=== PATIENT | female | born 2000 | race Caucasian/White ===

== ENCOUNTER 2025-11-08 11:48 | Emergency (ER) | payer MEDICAID ==
[~2025-11-08] VITALS: Ht 165.1 cm; Wt 75.5 kg
--- NOTE | 2025-11-08 12:20 | Physician Documentation ---
History of Present Illness ~ Chief Complaint: Head Injury Stated Complaint: HEAD PAIN Time Seen by MD: 14:14 OK to notify your PCP?: Yes HPI This is a 25-year-old female who presents with one-week of left-sided head pain, that has being, nausea, and vomiting since a fall from the bed of a pickup truck striking the left side of her head and face with loss of consciousness of unkn own time. Patient reports injuries to left shoulder and left hip as well reports full range of motion in both shoulder and hip. Patient reports that the injury was sustained over a week ago when she fell out of the truck. Patient reports she has a chronic history of sinus infections just completed a course of antibiotics approximately 4 days ago but is unsure with the antibiotic was. Patient reports episodes of nausea dizziness and vomiting that she believes is associated with her sinus infections. Chest pain no shortness of breath no headache other than pressure in her sinuses. No other symptoms reported at this time. Medication Reconciliation Allergies: Coded Allergies: No Known Allergies (Unverified , 11/08/25) Review of Systems ROS As stated above in the HPI, otherwise all systems are reviewed and negative. Physical Exam Vital Signs: Temperature: 98.0, Heart Rate: 98, Respiratory Rate: 17, BP: 146/92, Pulse Oximetry: 100, Weight: 75.450 Oxygen Flow Rate: 0 Physical Exam VITALS: Reviewed and as above. GENERAL: Alert, nontoxic appearing, no apparent distress. HEENT: PERRLA, EOMI RESPIRATORY: No increased work of breathing, no respiratory distress, speaking in full clear sentences CHEST: CV: BACK: GI: MUSCULOSKELETAL: Full ROM to bilateral upper extremities, though the pain elicited with ROM left shoulder SKIN: NEURO: PSYCH: Progress Results/Orders Results/Orders Vital Signs 11/08/25 11/08/25 12:02 13:37 Temp 98.0 98.0 Pulse 98 80 Resp 17 16 B/P (MAP) 146/92 126/85 (99) Pulse Ox 100 97 O2 Flow Rate 0 0 Medical Decision Making Additional information obtaine: other Findings Chief Complaint: Left-sided head pain, nausea, and vomiting for one week following head trauma. History of Present Illness: This is a 25-year-old female who presents with one week of left-sided head pain, nausea, and vomiting following a fall from the bed of a pickup truck one week ago. The patient struck the left side of her head and face with loss of consciousness of unknown duration. She reports associated injuries to the left shoulder and left hip, though both demonstrate full range of motion on examination. The patient has a history of chronic sinus infections and completed a course of antibiotics approximately four days ago, but reports persistent sinus pain. Diagnostic Workup: CT head was obtained and showed no intracranial abnormalities or concerning findings. The study did reveal evidence of left-sided sinus infection. Medical Decision Making: Number of Diagnoses/Management Options: Moderate complexity. This patient presents with multiple diagnoses requiring consideration: acute post-traumatic headache attributed to mild traumatic brain injury, acute bacterial sinusitis, and musculoskeletal injuries to shoulder and hip. Amount/Complexity of Data: Moderate complexity. CT head imaging was reviewed and showed no acute intracranial pathology, which is reassuring given the mechanism of injury and loss of consciousness. The imaging did identify left-sided sinusitis, providing objective evidence to support antibiotic therapy. Risk of Complications: Moderate risk. The patient sustained mild traumatic brain injury with loss of consciousness of unknown duration. While CT head is negative for acute intracranial injury, she meets criteria for acute post-traumatic headache, which developed within 7 days of the injury and is characterized by unilateral headache with nausea and vomiting. Post-traumatic headache is one of the most common sequelae of mild traumatic brain injury, and most individuals report acute post-traumatic headache within 7 days of trauma. While most patients recover within the first one to two weeks, persistent symptoms may occur in 5-20% of patients. The patient's headache phenotype appears migraine- like given the unilateral location, nausea, and vomiting. The concurrent acute bacterial sinusitis represents a separate but potentially contributory issue. The patient has a history of chronic sinus infections and recently completed antibiotics, yet continues to have persistent sinus pain with objective CT findings of left-sided sinus infection. This pattern raises concern for recurrent acute rhinosinusitis, which is diagnosed when 4 or more episodes occur in 12 months. Given the recent antibiotic course and treatment failure, co nsideration must be given to resistant organisms. 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 CT head negative for intracranial injury, which is appropriate given the clinical presentation. The patient will be discharged with instructions to return immediately for worsening headache, repeated vomiting, seizure, or deteriorating mental status. A responsible adult should stay with the patient for the first 24 hours after discharge. The patient should follow up with her primary care provider within one week for reassessment of post-concussion symptoms and consideration of symptomatic treatment if headaches persist. Acute bacterial sinusitis, left-sided: CT findings confirm sinusitis. Given recent antibiotic treatment failure and persistent symptoms, will initiate azithromycin therapy. The patient will be instructed to follow up with her primary care provider for consideration of otolaryngology referral, particularly given the history of chronic/recurrent sinus infections. If symptoms worsen or fail to improve, further evaluation including possible nasal endoscopy and culture-directed therapy may be warranted. Musculoskeletal injuries (left shoulder and hip): Patient reports full range of motion in both areas. No acute intervention required. Patient advised to follow up if pain worsens or range of motion becomes limited. Disposition: Discharge home with responsible adult. Return precautions provided verbally and in writing regarding signs of neurological deterioration. Follow up with primary care provider within one week for reassessment of post-traumatic headache symptoms and sinusitis treatment response, with consideration of ENT referral for recurrent sinusitis. Total Time: [Time spent on patient encounter and documentation] Medical Decision Making Level: Moderate complexity based on moderate number of diagnoses/management options, moderate amount/complexity of data reviewed, and moderate risk of complications. Differential Dx:Considerations: Include: Closed head injury, Cervical spine injury, Skull facture, Fracture, Abrasion, Contusion, Foreign body, Laceration, Intoxication-alcohol, Intoxication-other drug, Substance abuse disorder, Personality disorder, Non-accidental trauma, Other Departure Disposition: 01 HOME / SELF CARE / HOMELESS Impression: Primary Impression: Sinus infection Additional Impression: Head injury without concussion or intracranial hemorrhage Discharge Instructions: Sinus Infection, Adult, [id number] Referrals: NO PRIMARY CARE PROVIDER (PCP) Prescriptions Azithromycin (Azithromycin) 250 Mg Tablet 1 TAB PO UD for 5 Days, #6 TAB 2 the first day followed by 1 for days 2-5 Prov: CARMITA VENTURA 11/08/25 Education Educated: Patient Educated regarding: diagnosis, treatment, need for follow up Signature Scribe Signature: A Attestation: Scribed for Carmita Ventura by HUGH Salter . 11/08/25 15:39 DAVID JACOME Nov 08, 2025 12:20 CARMITA VENTURA Nov 08, 2025 15:39
--- NOTE | 2025-11-08 12:54 | RADIOLOGY REPORT ---
EXAM: DI SHOULDER, COMPLETE (MIN 2 VWS) CLINICAL INDICATION: Shoulder pain post fall TECHNIQUE: DI SHOULDER, COMPLETE (MIN 2 VWS) Comparison: None FINDINGS/IMPRESSION: There is no evidence of acute fracture or dislocation. The visualized joint space is well maintained. The alignment is anatomical. There is no radiopaque foreign body.
--- NOTE | 2025-11-08 13:05 | RADIOLOGY REPORT ---
CLINICAL HISTORY: Head/Sinus Pain Post Fall TECHNIQUE: Helical scanning was performed of the head from the skull base to the vertex. Multiplanar reconstructions were performed. This exam was performed according to our departmental dose optimization program. Up-to-date CT equipment and radiation dose reduction techniques are utilized as appropriate. CTDI 60 DLP 955 COMPARISON: None FINDINGS: There is no evidence for acute intracranial hemorrhage, acute ischemic changes, mass, mass effect, or extra-axial fluid collection. There is no hydrocephalus or midline shift. There is no effacement of the cerebral sulci and basal subarachnoid cisterns. The andrews-white matter differentiation is well maintained. IMPRESSION: NO ACUTE INTRACRANIAL ABNORMALITY SEEN.
--- NOTE | 2025-11-08 13:15 | RADIOLOGY REPORT ---
EXAM: CT CT FACIAL BONES/SOFT TISSUE INDICATION: Head/Sinus Pain Post Fall Exam Date: 11/08/2025 12:31 PM COMPARISON: None TECHNIQUE: CT of the neck without intravenous contrast. RADIATION DOSE: CTDIvol: 54.49 mGy, DLP: 919.33 mGy*cm FINDINGS: No fracture or malalignment. Diffuse mucosal thickening and near complete opacification of the left maxillary sinus, left frontal sinus, left-sided air cells. Orbits are unremarkable. Mastoid air cells are clear. Visualized portions of the brain are unremarkable. IMPRESSION: No fracture. Left-sided inflammatory sinus disease.
[2025-11-08 13:37] VITALS: BP 126/85; PULSE 80; RESP 16; TEMP 98; O2SAT 97
[2025-11-08] MEDS ORDERED: AZIT250T83 PO (15:38)
== END 2025-11-08 15:58 | disposition home or self-care (01) ==
LOC: ER 11:50
DX: S49.92XA Unspecified injury of left shoulder and upper arm, initial encounter (principal); S09.90XA Unspecified injury of head, initial encounter; V58.4XXA Person boarding or alighting a pick-up truck or van injured in noncollision transport accident, initial encounter; Y93.89 Activity, other specified; Y92.89 Other specified places as the place of occurrence of the external cause; Y99.8 Other external cause status
CPT/HCPCS: 70450; 70486; 73030; 99284